=== PATIENT | female | born 1975 | race Caucasian/White ===

== ENCOUNTER 2021-08-02 07:57 | Outpatient (CLI) | payer BC, SELFPAY ==
[2021-08-02] VITALS (8 sets, daily range): BP systolic 127–152; BP diastolic 67–88; PULSE 66–74; RESP 17–20; TEMP 36.9–37.1; O2SAT 94–97
== END 2021-08-02 10:58 | disposition home or self-care (01) ==
LOC: INF 08:02
PROVIDERS: PCP Nurse Practitioner; Visit Provider Nurse Practitioner Family
DX: U07.1 COVID-19 (principal)
CPT/HCPCS: 96365

== ENCOUNTER 2023-10-27 09:30 | Emergency (ER) | payer BC, SELFPAY ==
[2023-10-27 09:32] VITALS: BP 143/72; PULSE 100; RESP 20; TEMP 36.3; O2SAT 100; BMI 45.3
--- NOTE | 2023-10-27 09:45 | ED_ITS ---
Discharge Plan Disposition Patient Disposition: Home, Self-Care Referrals Follow up/Referrals: Mariaelena Degroot APRN [Primary Care Provider] - See instructions Activity Restrictions/Add. Instructions Additional Instructions/Restrictions: At this time it was felt you are safe to be discharged home. If new or worsening symptoms please do not hesitate to return the emergency department. Please attempt sitz bath's multiple times a day. If bleeding persists please put a small amount of Surgicel over the bleeding. Please follow-up with Dr. Sharma on Tuesday at 1:15 PM. Clinical Impressions Clinical Impression: Bleeding external hemorrhoids Instructions Patient Instructions: DI for Gastrointestinal Bleeding Discharge ED Provider: George David General Adult HPI General Chief complaint: GI Bleed Stated complaint: blood from rectum Time Seen by Provider: 10/27/23 09:32 History of Present Illness HPI narrative: Patient is a 48-year-old female with no pertinent past medical history presents emergency department for evaluation of rectal bleeding. Onset was acute, occurring over the last 48 hours. This was preceded by rectal pain that has been persistent, moderate to severe in intensity since Tuesday. Patient has never had a hemorrhoid before. She noticed today that she had significant blood with wiping after urination. No melena. No other acute complaints at this time. Related Data Allergies Allergy/AdvReac Type Severity Reaction Status Date / Time morphine [MORPHINE] Allergy Unknown SEVERE N/V Unverified 10/11/17 14:10 [facility] Disclaimer: The information contained in this section may have been updated after the patient was seen, as this information can be updated by other users. Social History Smoking Status: Current every day smoker alcohol intake: never current occupational status: other Travel in the last 8 weeks: None ROS Obtained: Yes Systems reviewed as appropriate & no additional complaints except as documented Physical Exam General General appearance: alert and in no apparent distress Head Head exam: atraumatic and normocephalic Eye Eye exam: Present PERRL and EOMI ENT ENT exam: Present mucous membranes moist Neck Neck exam: Present normal inspection Chest Chest inspection: Present normal inspection and symmetric chest wall rise Respiratory Respiratory exam: Present normal lung sounds bilaterally; Absent respiratory distress Cardiovascular Cardiovascular exam: Present regular rate and normal rhythm Abdominal Exam Abdominal exam: Present soft; Absent tenderness Bimanual exam: Present other (Electrical Products Engineer present, large hemorrhoid that is oozing blood is noted.) Extremities Exam Extremities exam: Present normal inspection Neurological Exam Neurological exam: Present alert Psychiatric Psychiatric exam: Present normal affect Skin Skin exam: Present warm and dry Medical Decision Making Cordell Inquiry Pt receiving controlled substance: No Vital Signs: 10/27/23 09:32 Temperature 97.3 F L Temperature Source Oral Pulse Rate [Right] 100 H Respiratory Rate 20 Blood Pressure [Right Arm] 143/72 H Blood Pressure Mean [Right Arm] 95 Blood Pressure Source [Right Arm] Automatic Cuff 02 Sat by Pulse Oximetry 100 Oxygen Delivery Method Room Air Medical Decision Narrative: In summary patient is a 48-year-old female with past medical history described above who presents emergency department for evaluation of rectal pain and bleeding. Patient is hemodynamically stable nontoxic-appearing upon arrival, afebrile. Patient has a external hemorrhoid that is large and oozing blood. There is no significant hemorrhage however given its persistence she has soaked through many pads prior to arrival. No concern for intra-abdominal pathology at this time based on history and physical exam. Case was discussed with Dr. Sharma on how to best achieve hemostasis, he recommend Surgicel. Surgicel was placed over the oozing hemorrhoid with success. Patient was arranged to have follow-up in surgical clinic and was discharged home with Surgicel and instructions for sitz bath. Critical Care Critical Care Time Critical Care Time: No
--- NOTE | 2023-10-27 09:47 | PC.NURSE ---
Spoke with surgery to have Dr. Sharma call Dr. David
--- NOTE | 2023-10-27 10:17 | PC.NURSE ---
Rounded on pt. No needs voiced at this time. Call light within reach.
--- NOTE | 2023-10-27 10:27 | PC.NURSE ---
Surgicell dressing and pressure applied. Will re-evaluate.
--- NOTE | 2023-10-27 11:11 | PC.NURSE ---
Re-eval bleeding has stopped. Follow up with Dr Sharma scheduled 11-01-23 @ 1:15pm.
[2023-10-27 11:22] VITALS: BP 124/63; PULSE 80; RESP 18; TEMP 36.3; O2SAT 99
== END 2023-10-27 11:30 | disposition home or self-care (01) ==
PROVIDERS: Emergency Provider Emergency Medicine; PCP Nurse Practitioner
DX: K64.8 Other hemorrhoids (principal); F17.200 Nicotine dependence, unspecified, uncomplicated
CPT/HCPCS: 99283